=== PATIENT | male | born 1995 | race Caucasian/White ===

== ENCOUNTER 2018-08-06 02:02 | Emergency (ER) | payer BC, OTHER ==
[2018-08-06] MEDS ORDERED: LIDOCAINE 1%/EPINEPHRINE INJ 20 ML VIAL INJ ONE (02:17)
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
[2018-08-06 02:52] LABS: ANION GAP 10 (5-19); BLOOD UREA NITROGEN 15 mg/dL (7-20); CALCIUM 9.8 mg/dL (8.4-10.2); CARBON DIOXIDE 32 mmol/L (22-30); CHLORIDE 101 mmol/L (98-107); GLUCOSE 99 mg/dL (75-110); POTASSIUM 4.3 mmol/L (3.6-5.0); SODIUM 142.7 mmol/L (137-145)
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
[2018-08-06 05:07] VITALS: BP 126/82
== END 2018-08-06 05:07 | disposition home or self-care (01) ==
LOC: ER 02:02
DX: S12.491A Other nondisplaced fracture of fifth cervical vertebra, initial encounter for closed fracture (principal); S01.01XA Laceration without foreign body of scalp, initial encounter; R10.31 Right lower quadrant pain; M25.551 Pain in right hip; M79.651 Pain in right thigh; V68.5XXA Driver of heavy transport vehicle injured in noncollision transport accident in traffic accident, initial encounter; R09.89 Other specified symptoms and signs involving the circulatory and respiratory systems; Y93.C2 Activity, hand held interactive electronic device; F17.200 Nicotine dependence, unspecified, uncomplicated; Z88.0 Allergy status to penicillin; J45.909 Unspecified asthma, uncomplicated
CPT/HCPCS: 99284; 36415; 80048; 70450; 71260; 72125; 74177; 12001; L0172; J3490

== ENCOUNTER 2019-01-17 16:00 | Emergency (ER) | payer OTHER ==
[2019-01-17 16:53] VITALS: BP 133/69
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
[2019-01-17] MEDS ORDERED: KETOROLAC TROMETHAMINE 60 MG/2 ML SDV IM ONE (21:34)
== END 2019-01-17 22:12 | disposition home or self-care (01) ==
LOC: ER 16:00
DX: M54.2 Cervicalgia (principal); V89.2XXA Person injured in unspecified motor-vehicle accident, traffic, initial encounter; F17.200 Nicotine dependence, unspecified, uncomplicated; Z88.0 Allergy status to penicillin
CPT/HCPCS: 99283; 96372; 72125; L0120; J1885

== ENCOUNTER 2020-08-15 14:16 | Emergency (ER) | payer OTHER ==
[2020-08-15 14:21] VITALS: BP 134/55
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
== END 2020-08-15 14:37 | disposition home or self-care (01) ==
LOC: ER 14:16
DX: S06.0X9A Concussion with loss of consciousness of unspecified duration, initial encounter (principal); V48.5XXA Car driver injured in noncollision transport accident in traffic accident, initial encounter; F17.200 Nicotine dependence, unspecified, uncomplicated; F12.10 Cannabis abuse, uncomplicated; J45.909 Unspecified asthma, uncomplicated
CPT/HCPCS: 99282